=== PATIENT | female | born 1955 | race Caucasian/White ===

== ENCOUNTER → 2020-06-24 | Outpatient (CLI) | payer MEDICARE, BC ==
[~2020-06-24] MED LIST: ALBU8.5H2 IH; ASP81TEC PO; EST.625T PO; FLC1T PO; FLUT1DIS26 IH; FURO20TA4 PO; FURO40TA4 PO; GABA800T2 PO; HYDR-2997 PO; LD5PT TOP; LIDOCAINE CREAM TOP; MULT-608 PO; NF-ESOM40C PO; OMEP-10 PO; OXYC-12 PO; OXYC-188 PO; OXYC-272 PO; OXYC20TA63 PO; QUIN20TA15 PO; SMV20T PO; SODIUM BICARBONATE PO; SRTR100T PO; THIA250T3 PO; VITA1CAP59 PO
--- NOTE | 2020-06-24 12:49 | Diagnostic Imaging Report ---
EXAMINATION: Left shoulder at 1112h. INDICATION: Fell shoulder pain 3 views were obtained. There is a thin band of increased density extending through the medial aspect of the surgical neck of the humerus. The possibility that this is related to a minimal impaction fracture should be considered. If further study is desired, then CT would be recommended. No other fracture or acute bony abnormality is identified. The glenohumeral joint and acromioclavicular joints are fairly well-maintained. The soft tissues are unremarkable. IMPRESSION: 1. There is a question of minimal impaction fracture involving the surgical neck of the humerus. If further imaging is desired, then CT would be recommended. 2. There is no acute bony abnormality noted otherwise. Dictated by: Dictated on workstation # [id number]
== END ==
LOC: RAD FS 11:04
PROVIDERS: ATTEND Nurse Practitioner
DX: M25.512 Pain in left shoulder (principal); W19.XXXA Unspecified fall, initial encounter
CPT/HCPCS: 73030

== ENCOUNTER → 2020-12-25 | Outpatient (CLI) | payer MEDICARE, BC ==
--- NOTE | 2020-12-25 13:06 | Diagnostic Imaging Report ---
INDICATION: Left shoulder pain. Time of exam 10:28 AM Correlation is made with prior left shoulder from 06/24/2020. The glenohumeral and acromioclavicular alignment are normal. There is a large osteophyte at the humeral head neck junction medially. No acute fracture is identified. There is no dislocation. IMPRESSION: Degenerative changes. No acute bony abnormality is detected. Dictated by: Dictated on workstation # [id number]
== END ==
LOC: RAD FS 10:22
PROVIDERS: ATTEND Nurse Practitioner
DX: S40.012A Contusion of left shoulder, initial encounter (principal); M19.012 Primary osteoarthritis, left shoulder
CPT/HCPCS: 73030